=== PATIENT | female | born 1940 | race Caucasian/White ===

== ENCOUNTER → 2018-12-12 | Outpatient (CLI) | payer OTHER | LOC: HYPER 06:46 | DX: E11.621 Type 2 diabetes mellitus with foot ulcer (principal); L89.620 Pressure ulcer of left heel, unstageable; L97.421 Non-pressure chronic ulcer of left heel and midfoot limited to breakdown of skin; E11.40 Type 2 diabetes mellitus with diabetic neuropathy, unspecified; E11.610 Type 2 diabetes mellitus with diabetic neuropathic arthropathy; L84 Corns and callosities; L60.3 Nail dystrophy; I10 Essential (primary) hypertension; E78.5 Hyperlipidemia, unspecified; M10.9 Gout, unspecified; Z79.4 Long term (current) use of insulin ==

== ENCOUNTER → 2018-12-25 | Outpatient (CLI) | payer OTHER | LOC: HYPER 06:30 | DX: E11.621 Type 2 diabetes mellitus with foot ulcer (principal); L89.620 Pressure ulcer of left heel, unstageable; L97.421 Non-pressure chronic ulcer of left heel and midfoot limited to breakdown of skin; E11.40 Type 2 diabetes mellitus with diabetic neuropathy, unspecified; E11.610 Type 2 diabetes mellitus with diabetic neuropathic arthropathy; I10 Essential (primary) hypertension; L60.3 Nail dystrophy; L84 Corns and callosities; E78.00 Pure hypercholesterolemia, unspecified; M10.9 Gout, unspecified; Z79.4 Long term (current) use of insulin ==

== ENCOUNTER → 2019-01-08 | Outpatient (CLI) | payer OTHER | LOC: HYPER 06:32 | DX: E11.621 Type 2 diabetes mellitus with foot ulcer (principal); L89.620 Pressure ulcer of left heel, unstageable; L97.421 Non-pressure chronic ulcer of left heel and midfoot limited to breakdown of skin; E11.40 Type 2 diabetes mellitus with diabetic neuropathy, unspecified; E11.610 Type 2 diabetes mellitus with diabetic neuropathic arthropathy; I10 Essential (primary) hypertension; L60.3 Nail dystrophy; E78.00 Pure hypercholesterolemia, unspecified; M10.9 Gout, unspecified; Z79.4 Long term (current) use of insulin ==

== ENCOUNTER → 2019-01-27 | Outpatient (CLI) | payer OTHER | LOC: HYPER 06:54 | DX: E11.621 Type 2 diabetes mellitus with foot ulcer (principal); L97.421 Non-pressure chronic ulcer of left heel and midfoot limited to breakdown of skin; L89.624 Pressure ulcer of left heel, stage 4; I10 Essential (primary) hypertension; E11.40 Type 2 diabetes mellitus with diabetic neuropathy, unspecified; E11.610 Type 2 diabetes mellitus with diabetic neuropathic arthropathy; L60.3 Nail dystrophy; L84 Corns and callosities; E78.00 Pure hypercholesterolemia, unspecified; M10.9 Gout, unspecified; Z79.4 Long term (current) use of insulin ==

== ENCOUNTER → 2019-02-03 | Outpatient (CLI) | payer OTHER | LOC: HYPER 07:11 | DX: E11.621 Type 2 diabetes mellitus with foot ulcer (principal); L89.624 Pressure ulcer of left heel, stage 4; L97.421 Non-pressure chronic ulcer of left heel and midfoot limited to breakdown of skin; E11.40 Type 2 diabetes mellitus with diabetic neuropathy, unspecified; E11.610 Type 2 diabetes mellitus with diabetic neuropathic arthropathy; I10 Essential (primary) hypertension; L60.3 Nail dystrophy; L84 Corns and callosities; E78.00 Pure hypercholesterolemia, unspecified; M10.9 Gout, unspecified; Z79.4 Long term (current) use of insulin ==

== ENCOUNTER → 2019-02-05 | Outpatient (CLI) | payer OTHER | LOC: MRI 09:28 | DX: M86.8X7 Other osteomyelitis, ankle and foot (principal); M21.42 Flat foot [pes planus] (acquired), left foot; M60.9 Myositis, unspecified ==